=== PATIENT | male | born 1955 | race Caucasian/White ===

== ENCOUNTER 2017-12-03 09:08 | Emergency (ER) | payer BC, OTHER ==
[~2017-12-03] VITALS: Ht 185.4 cm; Wt 83.4 kg
[2017-12-03] MEDS ORDERED: SILVER SULF. CRM 1% , 25GM ONE (09:34)
[2017-12-03] MEDS ORDERED: SILVER SULF. CRM 1% , 25GM TP ONE (10:00)
[2017-12-03 10:27] VITALS: BP 122/79
== END 2017-12-03 10:31 | disposition home or self-care (01) ==
LOC: ED 10:29
DX: T23.102A Burn of first degree of left hand, unspecified site, initial encounter (principal); T31.0 Burns involving less than 10% of body surface; X12.XXXA Contact with other hot fluids, initial encounter; Y93.89 Activity, other specified; Y92.009 Unspecified place in unspecified non-institutional (private) residence as the place of occurrence of the external cause; Y99.8 Other external cause status
CPT/HCPCS: 16000; 99284